=== PATIENT | male | born 1980 | race Caucasian/White ===

== ENCOUNTER 2017-08-05 09:03 | Emergency (ER) | payer OTHER ==
[2017-08-05 09:05] VITALS: BP 133/81
[2017-08-05] MEDS ORDERED: TETRACAINE 0.5% OPHTH SOLUTION 4ML BOTTLE. ONE (09:14)
[2017-08-05] MEDS ORDERED: FLUORESCEIN 1MG EYE STRIP. ONE (09:14)
[2017-08-05] MEDS ORDERED: FLUORESCEIN 1MG EYE STRIP. OD ONE ×2 (09:30→10:00)
[2017-08-05] MEDS ORDERED: TETRACAINE 0.5% OPHTH SOLUTION 4ML BOTTLE. OD ONE ×2 (09:30→10:00)
--- NOTE | 2017-08-05 09:38 | PHYS DOC ---
Adult General Chief Complaint Chief Complaint: EYE PROBLEMS HPI HPI 37-year-old male complains of right eye pain. The patient woke up this morning feeling normal. He put in his contacts and then took a shower. While he was in the shower he thought he might have rubbed his right contact out. He went to put in a new contact and had a burning sensation in the right eye. He presents can see is concerned of corneal abrasion or retention of contact in the right eye. He did not find the contact were any pieces. He has had mild tearing. Minimal redness. His eye currently feels like there is "a lump in it". He has no other complaints. Review of Systems Review of Systems Constitutional: Denies fever or chills [] Eyes: Right eye pain [] HENT: Denies nasal congestion or sore throat [] Respiratory: Denies cough or shortness of breath [] Cardiovascular: No additional information not addressed in HPI [] GI: Denies abdominal pain, nausea, vomiting, bloody stools or diarrhea [] : Denies dysuria or hematuria [] Musculoskeletal: Denies back pain or joint pain [] Integument: Denies rash or skin lesions [] Neurologic: Denies headache, focal weakness or sensory changes [] Endocrine: Denies polyuria or polydipsia [] All other systems were reviewed and found to be within normal limits, except as documented in this note. Current Medications Current Medications Current Medications Medications (Trade) Dose Ordered Sig/Radha Start Time Stop Time Status Last Admin Dose Admin Fluorescein Sodium (Ful-Kaitlin 1mg) 1 strip 1X ONCE 08/05/17 09:30 08/05/17 09:31 UNV Tetracaine HCl (Tetracaine) 1 drop 1X ONCE 08/05/17 09:30 08/05/17 09:31 UNV Physical Exam Physical Exam Constitutional: Well developed, well nourished, no acute distress, non-toxic appearance. [] HENT: Normocephalic, atraumatic, bilateral external ears normal, oropharynx moist, no oral exudates, nose normal. Fluorescein dye and Wood's lamp exam was negative. [] Eyes: PERRLA, EOMI, conjunctiva normal, no discharge. [] Neck: Normal range of motion, no tenderness, supple, no stridor. [] Cardiovascular:Heart rate regular rhythm, no murmur [] Lungs & Thorax: Bilateral breath sounds clear to auscultation [] Abdomen: Bowel sounds normal, soft, no tenderness, no masses, no pulsatile masses. [] Skin: Warm, dry, no erythema, no rash. [] Back: No tenderness, no CVA tenderness. [] Extremities: No tenderness, no cyanosis, no clubbing, ROM intact, no edema. [] Neurologic: Alert and oriented X 3, normal motor function, normal sensory function, no focal deficits noted. [] Psychologic: Affect normal, judgement normal, mood normal. [] EKG EKG [] Radiology/Procedures Radiology/Procedures [] Course & Med Decision Making Course & Med Decision Making Pertinent Labs and Imaging studies reviewed. (See chart for details) I performed a floor [facility] Kent lamp evaluation of the patient. I do not see any foreign bodies or corneal abrasion. See below for procedure details. I advised the patient where his glasses for the rest of the day and to try not to rub his eye. He is stable for discharge. Corneal abrasion evaluation: A visual inspection of the right eye was performed. No obvious foreign body or fragment was seen. I then placed tetracaine eye drops for numbing in the right eye. This was followed by application of horse dye I evaluated GI second time with Kent lamp and did not find any fragments or corneal abrasion. There was no abnormal uptake. He tolerated the procedure well. [] Dragon Disclaimer Dragon Disclaimer This electronic medical record was generated, in whole or in part, using a voice recognition dictation system. Departure Departure: Impression: Primary Impression: Pain in right eye Disposition: 01 HOME, SELF-CARE Condition: STABLE DEJON WESTON DO August 05, 2017 09:38
== END 2017-08-05 09:38 | disposition home or self-care (01) ==
LOC: ER 09:03
DX: H57.11 Ocular pain, right eye (principal)
CPT/HCPCS: 99283

== ENCOUNTER 2021-01-28 18:02 | Emergency (ER) | payer OTHER ==
[~2021-01-28] VITALS: Ht 172.7 cm; Wt 130.0 kg
[2021-01-28] MEDS ORDERED: HYDROcodone/APAP 5/325MG 1 TAB TABLET PO ONE (18:45)
[2021-01-28] MEDS ORDERED: NAPROXEN 500 MG TABLET PO ONE (18:45)
--- NOTE | 2021-01-28 18:47 | PHYS DOC ---
Past History Past Medical History: Diabetes, High Cholesterol, Hypertension (ROBERT DEVINE APRN) Past Surgical History: No Surgical History (ROBERT DEVINE APRN) Alcohol Use: Rarely Drug Use: None (ROBERT DEVINE APRN) Adult General Chief Complaint Chief Complaint: SHOULDER INJURY HPI HPI Patient is a 40-year-old male patient with history of diabetes type 2, hypertension, high cholesterol, who presents to the ED today complaining of right shoulder pain. Patient rates the pain as moderate and worse on range of motion. States the pain is intermittent. Patient states 3 days ago he tripped over a drain, he was about to fall, he states he reached out to hold something and pulled his right shoulder. Patient states the pain got worse today at work. (ROBERT DEVINE APRN) Review of Systems Review of Systems Constitutional: Denies fever or chills [] Musculoskeletal: Reports right shoulder pain Integument: Denies rash or skin lesions [] Neurologic: Denies headache, focal weakness or sensory changes [] All other systems were reviewed and found to be within normal limits, except as documented in this note. (ROBERT DEVINE APRN) Current Medications Current Medications Current Medications Medications (Trade) Dose Ordered Sig/Radha Start Time Stop Time Status Last Admin Dose Admin Acetaminophen/ Hydrocodone Bitart (Lortab 5/325) 2 tab 1X ONCE 01/28/21 18:45 01/28/21 18:46 01/28/21 18:41 2 TAB Naproxen (Naprosyn) 500 mg 1X ONCE 01/28/21 18:45 01/28/21 18:46 01/28/21 18:42 500 MG (ROBERT DEVINE APRN) Allergies Allergies Allergies Coded Allergies Type Severity Reaction Last Updated Verified No Known Drug Allergies 08/05/17 No (ROBERT DEVINE APRN) Physical Exam Physical Exam Constitutional: Well developed, well nourished, no acute distress, non-toxic appearance. [] Overweight patient. Skin: Warm, dry, no erythema, no rash. [] Back: No tenderness, no CVA tenderness. [] Extremities: Right shoulder with no ecchymosis, mild tenderness on palpation of the shoulder. Patient unable to take the shoulder through any range of motion, he states is very painful. Adequate radial, median, ulnar sensation to the right fingers. +2 right radial pulse. Cap refill less than 2 seconds to the right fingers Neurologic: Alert and oriented X 3, normal motor function, normal sensory function, no focal deficits noted. [] Psychologic: Affect normal, judgement normal, mood normal. [] (ROBERT DEVINE NAIL MACHINE OPERATOR) Current Patient Data Vital Signs Vital Signs Date Time Temp Pulse Resp B/P (MAP) Pulse Ox O2 Delivery O2 Flow Rate FiO2 01/28/21 18:41 16 01/28/21 18:12 98.3 110 151/87 (108) 98 Room Air (ROBERT DEVINE NAIL MACHINE OPERATOR) EKG EKG [] (ROBERT DEVINE NAIL MACHINE OPERATOR) Radiology/Procedures Radiology/Procedures []PROCEDURE: SHOULDER 2+V RIGHT EXAMINATION: Right shoulder radiograph. VIEWS: 3 views of the right shoulder COMPARISON: None INDICATION:40 years, Male, pain. FINDINGS: The humerus is dislocated anteriorly and medially. 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 Tissues are unremarkable. 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 Electronically signed by: Roxi Park DO (01/28/2021 6:54 PM) [facility] DICTATED AND SIGNED BY: ROXI PARK DO DATE: 01/28/21 185 CC: JAMES VGEA MD; ROBERT DEVINE NAIL MACHINE OPERATOR ~MTH0 0 Right shoulder reduction Consent was obtained. Patient was placed in a trauma room, he was put on monitors, patient was initially given fentanyl 100 mcg for sedation. Patient was placed in sitting position, bilateral palms facing each other were wrapped with Coban. Left lower extremity was left likely in the leg, right knee was flexed. Patient was Instructed to relax, gradually lean backward with the spine straight, extend the head, shrug the shoulders, and straighten the relaxed arms. Leaning backward applies traction to the shoulder, with countertraction supplied by the patient's bound wrists around the tibia. Audible "clunk" was noted. he was able to use his right UE to touch his left shoulder. He was placed in an immobilizer by ED EMT. X-ray was obtained, unfortunately patient dislocated his shoulder again. This happened 3 times with acid reducing the shoulder and patient dislocating it. Patient was given Versed. Dr. Faye had to use traction and countertraction to reduce the shoulder again successfully. He was placed in an immobilizer. Discharged home with follow-up with Ortho (ROBERT DEVINE APRN) Heart Score C/O Chest Pain: N/A Risk Factors: Risk Factors: DM, Current or recent (<one month) smoker, HTN, HLP, family history of CAD, obesity. Risk Scores: Risk Factors: DM, Current or recent (<one month) smoker, HTN, HLP, family history of CAD, obesity. (ROBERT DEVINE APRN) Course & Med Decision Making Course & Med Decision Making Pertinent Labs and Imaging studies reviewed. (See chart for details) This is a 40-year-old male patient presented to the ED today with right shoulder pain that began 3 days ago. 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 Patient had his right shoulder reduced 3 times with both hands being dislocated. Finally Dr. Faye was able to reduce it successfully and he was discharged home, he was instructed to follow-up with the orthopedic doctor tomorrow carin bey. Immobilizer applied today shoulder by the ED EMT, neurovascular exam done by me is normal. (ROBERT DEVINE APRN) Course & Med Decision Making Did not see or evaluate patient. Did not discuss patient with GROUP FITNESS MANAGER. Agree with GROUP FITNESS MANAGER's work-up and disposition per note. (ZACHARY FAYE MD) Dragon Disclaimer Dragon Disclaimer This electronic medical record was generated, in whole or in part, using a voice recognition dictation system. (ROBERT DEVINE APRN) Departure Departure: Impression: Primary Impression: Closed dislocation of right shoulder Disposition: HOME / SELF CARE / HOMELESS Condition: STABLE Referrals: JAMES VEGA MD (PCP) Please contact [facility] tomorrow morning at [phone] JANINA MANNING Jr. DO Patient Instructions: Shoulder Dislocation Additional Instructions: You had right shoulder dislocation that was reduced in the emergency room. Please contact [facility] orthopedic doctor at [phone] and set up a follow-up appointment. Call them tomorrow morning Scripts Cyclobenzaprine Hcl (CYCLOBENZAPRINE HCL) 10 Mg Tablet 1 TAB PO TID, #30 TAB Prov: ROBERT DEVINE APRN 01/28/21 Hydrocodone Bit/Acetaminophen (HYDROCODONE-APAP 5-325 ) 1 Each Tablet 1 TAB PO PRN Q6HRS PRN for PAIN, #12 TAB 0 Refills Prov: ROBERT DEVINE APRN 01/28/21 Problem Qualifiers Primary Impression: Closed dislocation of right shoulder Encounter type: initial encounter Qualified Codes: S43.004A - Unspecified dislocation of right shoulder joint, initial encounter ROBERT DEVINE APRN Jan 28, 2021 18:47 ZACHARY FAYE MD Jan 28, 2021 23:08
--- NOTE | 2021-01-28 18:57 | RAD ---
EXAMINATION: Right shoulder radiograph. VIEWS: 3 views of the right shoulder COMPARISON: None INDICATION:40 years, Male, pain. FINDINGS: The humerus is dislocated anteriorly and medially. 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 Tissues are unremarkable. 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 Electronically signed by: Deangelo Park DO (01/28/2021 6:54 PM) [facility]
[2021-01-28] MEDS ORDERED: IV NORMAL SALINE 1,000ML 1,000 ML IV ONE (19:15)
[2021-01-28] MEDS ORDERED: MIDAZOLAM HCL PF 5 MG/5 ML VIAL. IV ONE (20:45)
--- NOTE | 2021-01-28 21:04 | RAD ---
EXAM: RIGHT SHOULDER 3 VIEWS. HISTORY: Dislocation reduction. COMPARISON: 01/28/2021 1842. FINDINGS: Anteroinferior dislocation of the right humeral head persists. A Hill-Sachs deformity is cancino spected. Acromioclavicular joint spaces and alignment are maintained. IMPRESSION: 1. Persistent anteroinferior dislocation of the right humeral head. Electronically signed by: Meka Clarke MD (01/28/2021 9:02 PM) [facility]
[2021-01-28] MEDS ORDERED: HYDR-2155 PO (21:45)
[2021-01-28] MEDS ORDERED: CYCL10TA19 PO (21:45)
--- NOTE | 2021-01-28 21:57 | RAD ---
EXAM: RIGHT SHOULDER 3 VIEWS. HISTORY: Dislocation reduction. COMPARISON: Earlier same day FINDINGS: Persistent anterior-inferior dislocation of the right humeral head is seen on images 1-4 wi th possible reduction on the 5th supine image. Acromioclavicular joint spaces and alignment are maint ained. IMPRESSION: Possible reduction of right anterioinferior shoulder dislocation. Additional dedicated right shoulder radiographs is recommended to confirm reduction. Electronically signed by: Deangelo Park DO (01/28/2021 9:55 PM) [facility]
[2021-01-28 21:58] VITALS: BP 142/86
== END 2021-01-28 21:55 | disposition home or self-care (01) ==
LOC: ER 18:02
DX: S43.004A Unspecified dislocation of right shoulder joint, initial encounter (principal); E11.9 Type 2 diabetes mellitus without complications; E78.5 Hyperlipidemia, unspecified; I10 Essential (primary) hypertension; W01.0XXA Fall on same level from slipping, tripping and stumbling without subsequent striking against object, initial encounter; Y93.89 Activity, other specified; Y92.89 Other specified places as the place of occurrence of the external cause; Y99.8 Other external cause status
CPT/HCPCS: 23650; 73030; 96360; 96361; 99152; 99153; 99285; J2250; J3010; J7030; 96374; 96375; 99284-25